=== PATIENT | female | born 1955 | race Caucasian/White ===

== ENCOUNTER 2019-06-23 18:23 | Emergency (ER) | payer MEDICARE, OTHER ==
[~2019-06-23] VITALS: Ht 165.1 cm; Wt 122.5 kg
[~2019-06-23 18:23] MED LIST: ACET500 PO; ASPI325 PO; ATOR10 PO; CHOL10002 PO; CIPR500 PO; DIGO.125 PO; ERGO400 PO; FISH OIL 1,2001 EACH PO; FLONASE ALLERG9.9 ML; FOLTX TABLET1 EACH PO; Fish Oil300 MG PO; Flonase 0.05% N16 GM; GLUC500 PO; HYDACE10B PO; IBUP800 PO; MULVIT PO; Mobic15 MG PO; Non-Pseudo Sinu10 MG PO; Norco 5-325 Ta1 EACH PO; PROM25 PO; SINUS PRESSURE-10 MG PO; VITAMIN D35000 UNIT PO
== END 2019-06-23 20:00 | disposition home or self-care (01) ==
LOC: ER 18:23
DX: S09.90XA Unspecified injury of head, initial encounter (principal); E78.00 Pure hypercholesterolemia, unspecified; R68.84 Jaw pain; Z91.048 Other nonmedicinal substance allergy status; Z79.899 Other long term (current) drug therapy; Z79.1 Long term (current) use of non-steroidal anti-inflammatories (NSAID); W01.10XA Fall on same level from slipping, tripping and stumbling with subsequent striking against unspecified object, initial encounter; Y93.61 Activity, american tackle football; Y92.39 Other specified sports and athletic area as the place of occurrence of the external cause
CPT/HCPCS: 99283

== ENCOUNTER 2019-06-25 08:48 | Emergency (ER) | payer MEDICARE, OTHER ==
[~2019-06-25] VITALS: Ht 165.1 cm; Wt 122.5 kg
[2019-06-25 09:37] LABS: BASOPHILS ABSOLUTE AUTO 0.04 K/mm3 (0.00-0.23); BASOPHILS PERCENT AUTO 1 % (0-2); EOSINOPHILS ABSOLUTE AUTO 0.28 K/mm3 (0.00-0.68); EOSINOPHILS PERCENT AUTO 4 % (0-6); Hematocrit 45.3 % (33.0-51.0); Hemoglobin 13.7 g/dL (11.5-16.0); IMMATURE GRAN ABSOLUTE AUTO 0.03 K/mm3 (0.00-0.10); IMMATURE GRAN PERCENT AUTO 0 % (0-1); LYMPHOCYTES ABSOLUTE AUTO 2.57 K/mm3 (0.84-5.20); LYMPHOCYTES PERCENT AUTO 36 % (21-46); MONOCYTES ABSOLUTE AUTO 0.44 K/mm3 (0.16-1.47); MONOCYTES PERCENT AUTO 6 % (4-13); Mean Corpuscular HGB 27.1 pg (26.0-34.0); Mean Corpuscular HGB Conc 30.2 g/dL (31.5-36.5); Mean Corpuscular Volume 90 fL (80-100); Mean Platelet Volume 9.2 fL (9.1-12.4); NEUTROPHILS ABSOLUTE AUTO 3.77 K/mm3 (1.96-9.15); NEUTROPHILS PERCENT AUTO 53 % (41-73); Platelet Count 267 K/mm3 (150-400); RDW Coefficient Variation 14.2 % (11.7-14.2); RDW Standard Deviation 46.5 fL (35.1-46.3); Red Blood Cell Count 5.05 M/mm3 (3.80-5.20); White Blood Cell Count 7.13 K/mm3 (4.00-11.30)
[2019-06-25 09:52] LABS: Alanine Aminotransfer (ALT/SGP 40 U/L (12-78); Albumin, Blood 3.3 g/dL (3.4-5.0); Albumin/Globulin Ratio 0.9 (0.8-1.8); Alk Phos 172 U/L (50-136); Anion Gap 6 mmol/L (6-16); Aspartate Aminotrans (AST/SGOT 29 U/L (12-37); Bilirubin, Total 0.5 mg/dL (0.1-1.0); Blood Urea Nitrogen 14 mg/dL (8-24); Bun/Creatinine Ratio 20.2 (12.0-20.0); CO2, Blood 27 mmol/L (21-32); Calcium, Blood 8.8 mg/dL (8.5-10.1); Chloride, Blood 111 mmol/L (98-108); Creatinine, Blood 0.69 mg/dL (0.40-1.00); Globulin, Blood 3.7 g/dL (2.2-4.0); Glomerular Filtration Rate >60 (60-); Glucose, Blood 101 mg/dL (70-99); Sodium, Blood 144 mmol/L (136-145)
[2019-06-25] MEDS ORDERED: Medi-Meclizine25 MG PO (10:44)
== END 2019-06-25 10:51 | disposition home or self-care (01) ==
LOC: ER 08:48
PROVIDERS: Emergency Medicine
DX: R42 Dizziness and giddiness (principal); Z79.899 Other long term (current) drug therapy
CPT/HCPCS: 36415; 70450; 80053; 85025; 93005; 93010; 96360; 99284-25; J7120